=== PATIENT | female | born 1985 | race Caucasian/White ===

== ENCOUNTER 2017-05-20 00:05 | Emergency (ER) | payer OTHER ==
[~2017-05-20] VITALS: Ht 160 cm; Wt 77.1 kg
[~2017-05-20 00:05] MED LIST: DEXACIDIN EYE DR5 ML OPHTHALMIC; NAPROSYN500 MG PO; NOHOMEMEDICATIONS
[2017-05-20] MEDS ORDERED: TRAMADOL 50 MG50 MG PO (02:13)
[2017-05-20 02:29] VITALS: BP 126/78
[2017-05-20] MEDS ORDERED: ACETAMINOPHEN-1 EAC1 PO (02:38)
== END 2017-05-20 02:43 | disposition home or self-care (01) ==
LOC: ER 00:05
DX: S62.396A Other fracture of fifth metacarpal bone, right hand, initial encounter for closed fracture (principal); F10.99 Alcohol use, unspecified with unspecified alcohol-induced disorder; Z98.890 Other specified postprocedural states; Z88.6 Allergy status to analgesic agent; W22.01XA Walked into wall, initial encounter; Y93.89 Activity, other specified; Y92.89 Other specified places as the place of occurrence of the external cause; Y99.8 Other external cause status